=== PATIENT | male | born 1975 | race Caucasian/White ===

== ENCOUNTER → 2024-09-26 | Outpatient (CLI) | payer OTHER, SELFPAY ==
[2024-09-26 15:40] LABS: Absolute Lymphocyte Count 1.49 X10^3/uL (0.83-4.51); Absolute Neutrophil Count 4.2 X10^3/uL (2.0-7.7); Basophil# 0.05 X10^3/uL; Basophil% 0.8 % (0-1); Eosinophil# 0.14 X10^3/uL; Eosinophils% 2.2 % (0-5); Hematocrit 46.4 % (40-54); Hemoglobin 16.8 g/dL (13.0-16.5); Lymphocyte # 1.49 X10^3/ul (0.83-4.51); Lymphocyte % 23.2 % (19-41); Mean Corp Hgb Conc 36.2 g/dL (32-36); Mean Corpuscular Hgb 32.1 pg (27.0-32.0); Mean Corpuscular Volume 88.7 fL (80-94); Mean Platelet Vol. 10.3 fl (6.2-12.0); Monocyte# 0.46 X10^3/uL; Monocyte% 7.2 % (0-10); NRBC Flagged by Analyzer 0 % (0-5); Neutrophil # 4.24 X10^3/uL (2.7-7.7); Platelet Count 227 K/mm3 (150-450); RBC Distribution Width CV 12.8 % (11.6-14.6); RBC Distribution Width SD 41.2 fl (35.1-43.9); Red Blood Count 5.23 M/mm3 (4.6-6.2); White Blood Count 6.4 K/mm3 (4.4-11.0)
[2024-09-26 16:50] LABS: ALB/GLOB Ratio 1.6 RATIO (0.9-2.4); AST(SGOT) 41 U/L (<=37); Alanine Aminotransfer ALT/SGPT 54 U/L (<=46); Alkaline Phosphatase 74 U/L (40-129); Anion Gap 13 (5-15); BUN 12 mg/dL (4-19); BUN/Creat Ratio 11.2 RATIO (10-20); Calcium,Total 9.8 mg/dL (7.6-11.0); Carbon Dioxide 22.1 mmol/L (21.0-32.0); Chloride 103 mmol/L (98-108); Creatinine, Serum 1.03 mg/dL (0.70-1.20); EST Glomerular Filtration Rate 90 (>60); Globulin 3.1 g/dL (2.2-4.2); Glucose 116 mg/dL (70-99); Protein, Total 8.1 g/dL (5.9-8.4); Sodium Level 138 mmol/L (133-145); Total Bilirubin 0.47 mg/dL (0.00-1.30)
[2024-09-26 17:02] LABS: Cholesterol 159 mg/dL (<=200); High Density Lipoprotein 21 mg/dL; Low Density Lipoprotein Calc. -51 mg/dL; Triglycerides 946 mg/dL; Very Low Density Lipoprotein 189 mg/dL (5-40); cholesterol:hdl ratio screen 7.64
[2024-09-26 17:56] LABS: Vitamin B12 558 pg/mL (180-914); Vitamin D,25 Hydroxy 44.1 ng/mL (30-100)
== END | disposition home or self-care (01) ==
LOC: BIMLAB 14:08
PROVIDERS: PCP Internal Medicine; Referring Provider Internal Medicine; Visit Provider Internal Medicine
DX: I10 Essential (primary) hypertension (principal); F41.9 Anxiety disorder, unspecified; F32.A Depression, unspecified
CPT/HCPCS: 36415; 80053; 80061; 82306; 82607; 84439; 84443; 85025

== ENCOUNTER → 2025-03-01 | Outpatient (CLI) | payer OTHER, SELFPAY ==
--- OUTSIDE RECORDS SUMMARY | 2025-03-01 06:07 | XMS RPT_ITS | CCD ---
Author Organization [facility] Care Team Providers Care Fill Manager Name Role Phone KEVIN STRANGE CNP Primary Care Unavailable KEVIN STRANGE CNP Consulting Unavailable KEVIN STRANGE CNP Attending Unavailable KEVIN STRANGE CNP Admitting Unavailable PROVIDER, UNKNOWN Consulting Unavailable PROVIDER, UNKNOWN Consulting Unavailable KEVIN STRANGE CNP Primary Care Unavailable KEVIN STRANGE CNP Consulting Unavailable KEVIN STRANGE CNP Attending Unavailable KEVIN STRANGE CNP Admitting Unavailable PROVIDER, UNKNOWN Consulting Unavailable PROVIDER, UNKNOWN Consulting Unavailable KEVIN STRANGE CNP Primary Care Unavailable KEVIN STRANGE CNP Consulting Unavailable KEVIN STRANGE CNP Attending Unavailable KEVIN STRANGE CNP Admitting Unavailable PROVIDER, UNKNOWN Consulting Unavailable PROVIDER, UNKNOWN Consulting Unavailable Cynthia RODRIGUEZ, Dr. Pierce Attending Provider [phone] Cynthia RODRIGUEZ, Dr. Pierce Primary Care Provider Cynthia RODRIGUEZ, Dr. Pierce Referring Provider Oleghe, Efewongbe Primary Care Unavailable Oleghe, Efewongbe Referring Unavailable Oleghe, Efewongbe Attending Unavailable Oleghe, Efewongbe Referring Unavailable Oleghe, Efewongbe Attending Unavailable Oleghe, Efewongbe Primary Care Unavailable Oleghe, Efewongbe Referring Unavailable Oleghe, Efewongbe Attending Unavailable Oleghe, Efewongbe Primary Care Unavailable Oleghe, Efewongbe Attending Unavailable Oleghe, Efewongbe Referring Unavailable Oleghe, Efewongbe Attending Unavailable Oleghe, Efewongbe Primary Care Unavailable Allergies Allergy Classification Reported Allergen(s) Allergy Type Date of Onset Reaction(s) Facility (2 sources) Environmental Allergies: Uncoded; Translations: [Environmental Allergies: Uncoded] Propensity to adverse reactions [facility] Medications Current Medications Medication Drug Class(es) Dates Sig (Normalized) Sig (Original) amLODIPine 5 mg oral tablet (1 source) Dihydropyridine Calcium Channel Deyanira Start: 01-09-2025 take 1 tablet by mouth once daily Amlodipine 5 mg tablet Active 5 mg PO daily 30 2 January 09, 2025 12:00am Blood Pressure Monitor kit (1 source) Start: 09-26-2024 Blood Pressure Monitor kit Active 0 .MEDSUPPLY 1 0 September 26, 2024 12:00am Essential (primary) hypertension Check blood pressure daily for hypertension I10 Problems Problem Classification Problem Date Documented Da te Episodic/Chronic Anxiety disorders (3 sources) Mixed anxiety and depressive disorder; Translations: [Anxiety disorder, unspecified] Onset: 09-26-2024 09-26-2024 Chronic Disorders of lipid metabolism (2 sources) Hyperlipidemia, unspecified; Translations: [Hyperlipidemia, unspecified] Onset: 04-04-2024 Chronic Essential hypertension (4 sources) Essential (primary) hypertension; Translations: [Hypertensive disorder] Onset: 04-04-2024 09-26-2024 Chronic Mood disorders (1 source) Mood disorders; Translations: [Depression, unspecified] Onset: 09-26-2024 Other gastrointestinal disorders (2 sources) Groin mass; Translations: [Other intra-abdominal and pelvic swelling, mass and lump] 09-26-2024 Episodic Other gastrointestinal disorders (2 sources) Other intra-abdominal and pelvic swelling, mass and lump; Translations: [Other intra-abdominal and pelvic swelling, mass and lump] Onset: 09-26-2024 Episodic Other liver diseases (1 source) Elevated liver enzymes level; Translations: [Abnormal levels of other serum enzymes] 09-27-2024 Episodic Other liver diseases (1 source) Abnormal levels of other serum enzymes; Translations: [Abnormal levels of other serum enzymes] Onset: 11-21-2024 Episodic Other male genital disorders (2 sources) Swelling of scrotum ; Translations: [Other specified disorders of the male genital organs] 09-26-2024 Episodic Other male genital disorders (2 sources) Other specified disorders of the male genital organs; Translations: [Other specified disorders of the male genital organs] Onset: 09-26-2024 Episodic Other screening for suspected conditions (not mental disorders or infectious disease) (3 sources) Encounter for screening for diabetes mellitus; Translations: [Encounter for screening for diseases of the blood and blood-forming organs and certain disorders involving the immune mechanism] Onset: 04-06-2023 Episodic Results Test Name Value Interpretation Reference Range Facility Internal Medicine Office Vis harsh 01-09-2025 Internal Medicine Office Visit [facility] [address] [place] [address] [place] [address] OFFICE VISIT Date of Service: 01/09/25 MR#: [id number] Acct: [id number] Name: MICHAEL ASTORGA Rep #: [id number] : 1975 Provider: Dr. 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 Accompanied by: Self Is patient in pain?: No Allergies Environmental Allergies: Uncoded (seasonal) Adverse Reaction (Mild, Verified 01/09/25 08:03) congestion Medications ???Medication ???Instructions ???Recorded ???Confirmed ???Type blood pressure monitor #1 ea 09/26/24 01/09/25 Rx amlodipine 5 mg tablet 5 mg PO QDAY #30 tabs 01/09/25 Rx Have you fallen in the past year?: No Nurse's Note: discuss referrals etc [facility] Medical History Elevated liver enzymes Anxiety and depression Hypertension Scrotal swelling Left groin mass Social History adopted: No household members: spouse housing: house current occupational status: employed current occupational exposures/hazards: No pets and animals: Yes pets and animals: cat(s) leisure activities: reading history of recent travel: No Smoking Status: Never smoker second hand exposure: No alcohol intake: current alcohol intake frequency: holidays/special occasions only substance use type: does not use well-balanced diet: about half the time caffeine: Yes Type: coffee Number of servings: 2 eating out: 4 or more times/week during the past year weight has: increased > 10 lbs what type of physical activity do you participate in: none amanda/pentecostalism: Sabianist seatbelt use: always do you feel safe at home: Yes HPI HPI Chief Complaint: fu Details: MICHAEL ASTORGA, is a 49 M who presents to the office today for follow-up. No acute concerns at this time. History of hypertension, at his last visit recommendation was for home monitoring and updating office however he states that he only recently purchased a monitor and has not been checking it at home. Initial blood pressure today at 138/98 and repeat was 160/100. Significant family history of hypertension. Also history of anxiety and depression, he states that over recent weeks he has felt a lot better. Currently not on any medication. Chronic groin swelling, an attempt was made at imaging however this was denied by his insurance. Was referred initially to general surgery however they required imaging prior to scheduling a visit with him. He was subsequently referred to urology and is yet to schedule this appointment. Swelling remains the same. No change in bowel or bladder habit. ROS Const Constitutional: No body ache, excessive sweating, fatigue, fever(s), frequent falls, headache(s), snoring, weakness, weight change, sleep problems or change in appetite Eyes Eyes: No blurry vision, change in vision, vision loss, dry eyes, eye pain or Light sensitivity ENT ENT: No abnormal hearing, ear or mastoid pain, tinnitus, nasal congestion, headache(s), neck pain or sore throat Resp Respiratory: No cough, excessive phlegm production, hemoptysis, shortness of breath, snoring or wheezing Cardio Cardiology: No chest pain at rest, chest pain with exertion, excessive sweating, shortness of breath, dyspnea on exertion, lightheadedness, orthopnea or palpitations Gastro GI: No abdominal pain, change in bowel habits, constipation, cramping, diarrhea, nausea/dyspepsia or vomiting Genitourinary Male: No burning urination, painful urination, urinary incontinence, urinary frequency or blood in urine Musc Musculoskeletal: No abnormal gait, joint pain, back pain, limited range of motion, neck pain, numbness, stiffness, tingling or Arthritis Skin Skin: No dry skin, redness, lesions, itchy eyes, rash or wounds Neuro Neurology: No abnormal gait, abnormal hearing, abnormal speech, dizziness, weakness, frequent falls, headache(s), memory loss, numbness or tingling Psych Psychiatric: No anxiety, No change in appetite, No depression, No memory loss and No Thoughts of harming yourself/Others Endo Endocrine: No cold intolerance, excessive sweating, fatigue, flushing, heat intolerance, increased thirst/drinking, increased hunger or weight change Aller/Imm Allergy/Immunologic : No itchy eyes, seasonal allergy symptoms, hives or wheezing Anival/Lymp (more content not included)... Normal [facility] Absolute lymphocyte countOrd ered By: Kari Marie on 09-26-2024 Lymphocytes Auto (Unsp spec) [#/Vol] 1.49 10*3/uL 0.83-4.51 [facility] Absolute neutrophil countOrd ered By: Kari Marie on 09-26-2024 Neutrophils (Bld) [#/Vol] 4.2 10*3/uL 2.0-7.7 [facility] Anion gap in Serum or Plasma Ordered By: Kari Marie on 09-26-2024 Anion gap [Moles/Vol] 13 mmol/L 5-15 [facility] Automated lymphocyte count a s percentage of total leukocytesOrdered By: Kari Marie on 09-26-2024 Lymphocytes/100 WBC Auto (Unsp spec) 23.2 % 19-41 [facility] BUN/creatinine ratioOrdered By: Kari Marie on 09-26-2024 Urea nitrogen/Creatinine [Mass ratio] 11.2 mg/mg 10-20 [facility] Basophil percentageOrdered B y: Kari Marie on 09-26-2024 Basophils/100 WBC (Bld) 0.8 % 0-1 [facility] Bilirubin, totalOrdered By: Kari Marie on 09-26-2024 Bilirubin [Mass/Vol] 0.47 mg/dL 0.00-1.30 [facility] CBC W/Diff, Automatedon 04-3 0-202 Absolute Lymph 1.49 X10 3/uL Normal 0.83-4.51 [facility] Comment on above: Performed By: #### L 500.4100, L501.9520, L503.0106, L500.4050, L506.0400, L506.1001, L100.0100 #### [facility] [address] [place], [address] Absolute Neut 4.2 X10 3/uL Normal 2.0-7.7 [facility] Comment on above: Performed By: #### L 500.4100, L501.9520, L503.0106, L500.4050, L506.0400, L506.1001, L100.0100 #### [facility] [address] [place], [address] Basophils/100 WBC (Bld) 0.8 % Normal 0-1 [facility] Comment on above: Performed By: #### L 500.4100, L501.9520, L503.0106, L500.4050, L506.0400, L506.1001, L100.0100 #### [facility] [address] [place], [address] Eosinophils/100 WBC (Bld) 2.2 % Normal 0-5 [facility] Comment on above: Performed By: #### L 500.4100, L501.9520, L503.0106, L500.4050, L506.0400, L506.1001, L100.0100 #### [facility] [address] [place], [address] Erythrocyte distribution width (RBC) [Ratio] 12.8 % Normal 11.6-14.6 [facility] Comment on above: Performed By: #### L 500.4100, L501.9520, L503.0106, L500.4050, L506.0400, L506.1001, L100.0100 #### [facility] [address] [place], [address] Hematocrit (Bld) [Volume fraction] 46.4 % Normal 40-54 [facility] Comment on above: Performed By: #### L 500.4100, L501.9520, L503.0106, L500.4050, L506.0400, L506.1001, L100.0100 #### [facility] [address] [place], [address] Hemoglobin (Bld) [Mass/Vol] 16.8 g/dL High 13.0-16.5 [facility] Comment on above: Performed By: #### L 500.4100, L501.9520, L503.0106, L500.4050, L506.0400, L506.1001, L100.0100 #### [facility] [address] [place], [address] IG% 0.600 Normal 0.0-0.9 [facility] Comment on above: Result Comment: IG% - Immature Granulocytes (promyelocytes, myelocytes and metamyelocytes) > 1% indicates that a LEFT SHIFT is Present. Performed By: #### L 500.4100, L501.9520, L503.0106, L500.4050, L506.0400, L506.1001, L100.0100 #### [facility] [address] [place], [address] Lymphocytes/100 WBC (Bld) 23.2 % Normal 19-41 [facility] Comment on above: Performed By: #### L 500.4100, L501.9520, L503.0106, L500.4050, L506.0400, L506.1001, L100.0100 #### [facility] [address] [place], [address] MCH (RBC) [Entitic mass] 32.1 pg High 27.0-32.0 [facility] Comment on above: Performed By: #### L 500.4100, L501.9520, L503.0106, L500.4050, L506.0400, L506.1001, L100.0100 #### [facility] [address] [place], [address] MCHC (RBC) [Mass/Vol] 36.2 g/dL High 32-36 [facility] Comment on above: Performed By: #### L 500.4100, L501.9520, L503.0106, L500.4050, L506.0400, L506.1001, L100.0100 #### [facility] [address] [place], [address] MCV (RBC) [Entitic vol] 88.7 fL Normal 80-94 [facility] Comment on above: Performed By: #### L 500.4100, L501.9520, L503.0106, L500.4050, L506.0400, L506.1001, L100.0100 #### [facility] [address] [place], [address] Monocytes/100 WBC (Bld) 7.2 % Normal 0-10 [facility] Comment on above: Performed By: #### L 500.4100, L501.9520, L503.0106, L500.4050, L506.0400, L506.1001, L100.0100 #### [facility] [address] [place], [address] Neutrophils/100 WBC (Bld) 66.0 % Normal 47-70 [facility] Comment on above: Performed By: #### L 500.4100, L501.9520, L503.0106, L500.4050, L506.0400, L506.1001, L100.0100 #### [facility] [address] [place], [address] Nucleated RBC (Bld) [#/Vol] 0 10*3/uL Normal 0-5 [facility] Comment on above: Performed By: #### L 500.4100, L501.9520, L503.0106, L500.4050, L506.0400, L506.1001, L100.0100 #### [facility] [address] [place], [address] Platelet mean volume (Bld) [Entitic vol] 10.3 fL Normal 6.2-12.0 [facility] Comment on above: Performed By: #### L 500.4100, L501.9520, L503.0106, L500.4050, L506.0400, L506.1001, L100.0100 #### [facility] [address] [place], [address] Platelets (Bld) [#/Vol] 227 10*3/uL Normal 150-450 [facility] Comment on above: Performed By: #### L 500.4100, L501.9520, L503.0106, L500.4050, L506.0400, L506.1001, L100.0100 #### [facility] [address] [place], [address] RBC (Bld) [#/Vol] 5.23 10*6/uL Normal 4.6-6.2 [facility] Comment on above: Performed By: #### L 500.4100, L501.9520, L503.0106, L500.4050, L506.0400, L506.1001, L100.0100 #### [facility] [address] [place], [address] RDW SD 41.2 fl Normal 35.1-43.9 [facility] Comment on above: Performed By: #### L 500.4100, L501.9520, L503.0106, L500.4050, L506.0400, L506.1001, L100.0100 #### [facility] [address] [place], [place], [address] WBC (Bld) [#/Vol] 6.4 10*3/uL Normal 4.4-11.0 [facility] Comment on above: Performed By: #### L 500.4100, L501.9520, L503.0106, L500.4050, L506.0400, L506.1001, L100.0100 #### [facility] [address] [place], [address] Calculated very low density lipoprotein (VLDL) cholesterol measurementOrdered By: Kari Marie on 09-26-2024 Calculated very low density lipoprotein (VLDL) cholesterol measurement 189 mg/dL High 5-40 [facility] Carbon dioxide, total [Moles /volume] in Central venous bloodOrdered By: Kari Marie on 09-26-2024 CO2 [Moles/Vol] 22.1 mmol/L 21.0-32.0 [facility] Chloride assayOrdered By: Marlon Marie on 09-26-2024 Chloride [Moles/Vol] 103 mmol/L 98-108 [facility] Comprehensive Metabolic Prof ilon 09-26-2024 Albumin [Mass/Vol] 5.0 g/dL Normal 3.5-5.0 [facility] Comment on above: Performed By: #### L 500.4100, L501.9520, L503.0106, L500.4050, L506.0400, L506.1001, L100.0100 #### [facility] [address] [place], [address] Albumin/Globulin [Mass ratio] 1.6 {ratio} Normal 0.9-2.4 [facility] Comment on above: Performed By: #### L 500.4100, L501.9520, L503.0106, L500.4050, L506.0400, L506.1001, L100.0100 #### [facility] [address] [place], [address] ALK PHOS 74 U/L Normal 40-129 [facility] Comment on above: Performed By: #### L 500.4100, L501.9520, L503.0106, L500.4050, L506.0400, L506.1001, L100.0100 #### [facility] [address] [place], [address] ALT [Catalytic activity/Vol] 54 U/L High <=46 [facility] Comment on above: Performed By: #### L 500.4100, L501.9520, L503.0106, L500.4050, L506.0400, L506.1001, L100.0100 #### [facility] [address] [place], [address] AST [Catalytic activity/Vol] 41 U/L High <=37 [facility] Comment on above: Performed By: #### L 500.4100, L501.9520, L503.0106, L500.4050, L506.0400, L506.1001, L100.0100 #### [facility] [address] [place], [address] Bilirubin [Mass/Vol] 0.47 mg/dL Normal 0.00-1.30 [facility] Comment on above: Performed By: #### L 500.4100, L501.9520, L503.0106, L500.4050, L506.0400, L506.1001, L100.0100 #### [facility] [address] [place], [address] BUN/CRE 11.2 RATIO Normal 10-20 [facility] Comment on above: Performed By: #### L 500.4100, L501.9520, L503.0106, L500.4050, L506.0400, L506.1001, L100.0100 #### [facility] [address] [place], [address] Calcium [Mass/Vol] 9.8 mg/dL Normal 7.6-11.0 [facility] Comment on above: Performed By: #### L 500.4100, L501.9520, L503.0106, L500.4050, L506.0400, L506.1001, L100.0100 #### [facility] [address] [place], [address] Chloride [Moles/Vol] 103 mmol/L Normal 98-108 [facility] Comment on above: Performed By: #### L 500.4100, L501.9520, L503.0106, L500.4050, L506.0400, L506.1001, L100.0100 #### [facility] [address] [place], [address] CO2 [Moles/Vol] 22.1 mmol/L Normal 21.0-32.0 [facility] Comment on above: Performed By: #### L 500.4100, L501.9520, L503.0106, L500.4050, L506.0400, L506.1001, L100.0100 #### [facility] [address] [place], [address] Creatinine [Mass/Vol] 1.03 mg/dL Normal 0.70-1.20 [facility] Comment on above: Performed By: #### L 500.4100, L501.9520, L503.0106, L500.4050, L506.0400, L506.1001, L100.0100 #### [facility] [address] [place], [address] GAP 13 Normal 5-15 [facility] Comment on above: Performed By: #### L 500.4100, L501.9520, L503.0106, L500.4050, L506.0400, L506.1001, L100.0100 #### [facility] [address] [place], [address] GFR/1.73 sq M.predicted among non-blacks MDRD (S/P/Bld) [Vol rate/Area] 90 mL/min/{1.73_m2} Normal >60 [facility] Comment on above: Result Comment: mL/m in/1.73m2 CKD-EPI Creatinine Equation (2020) Performed By: #### L 500.4100, L501.9520, L503.0106, L500.4050, L506.0400, L506.1001, L100.0100 #### [facility] [address] [place], [address] Globulin (S) [Mass/Vol] 3.1 g/dL Normal 2.2-4.2 [facility] Comment on above: Performed By: #### L 500.4100, L501.9520, L503.0106, L500.4050, L506.0400, L506.1001, L100.0100 #### [facility] [address] [place], [address] Glucose [Mass/Vol] 116 mg/dL High 70-99 [facility] Comment on above: Performed By: #### L 500.4100, L501.9520, L503.0106, L500.4050, L506.0400, L506.1001, L100.0100 #### [facility] [address] [place], [address] Potassium [Moles/Vol] 4.0 mmol/L Normal 3.3-5.1 [facility] Comment on above: Performed By: #### L 500.4100, L501.9520, L503.0106, L500.4050, L506.0400, L506.1001, L100.0100 #### [facility] [address] [place], [address] Sodium [Moles/Vol] 138 mmol/L Normal 133-145 [facility] Comment on above: Performed By: #### L 500.4100, L501.9520, L503.0106, L500.4050, L506.0400, L506.1001, L100.0100 #### [facility] [address] [place], [address] T PROT 8.1 g/dL Normal 5.9-8.4 [facility] Comment on above: Performed By: #### L 500.4100, L501.9520, L503.0106, L500.4050, L506.0400, L506.1001, L100.0100 #### [facility] [address] [place], [address] Urea nitrogen [Mass/Vol] 12 mg/dL Normal 4-19 [facility] Comment on above: Performed By: #### L 500.4100, L501.9520, L503.0106, L500.4050, L506.0400, L506.1001, L100.0100 #### [facility] [address] [place], [address] Eosinophil percentageOrdered By: Kari Marie on 09-26-2024 Eosinophils/100 WBC (Bld) 2.2 % 0-5 [facility] Erythrocyte distribution wid th ratioOrdered By: Kari Marie on 09-26-2024 Erythrocyte distribution width (RBC) [Ratio] 12.8 % 11.6-14.6 [facility] Erythrocyte distribution wid th standard deviationOrdered By: Kari Marie on 09-26-2024 Erythrocyte distribution width (RBC) [Ratio] 41.2 fl 35.1-43.9 [facility] Glomerular filtration rate ( GFR) estimation/1.73 sq m using serum, plasma, or whole bOrdered By: Kari Marie on 09-26-2024 GFR/1.73 sq M.predicted among non-blacks MDRD (S/P/Bld) [Vol rate/Area] 90 mL/min/{1.73_m2} >60 [facility] Comment on above: mL/min/1.73m2 CKD-EP I Creatinine Equation (2020) Hematocrit Auto (Bld) [Volum e fraction]Ordered By: Kari Marie on 09-26-2024 Hematocrit (Bld) [Volume fraction] 46.4 % 40-54 [facility] Hemoglobin measurementOrdere d By: Kari Marie on 09-26-2024 Hemoglobin (Bld) [Mass/Vol] 16.8 g/dL High 13.0-16.5 [facility] Immature granulocytes/100 WB C Auto (Bld)Ordered By: Kari Marie on 09-26-2024 Immature granulocytes/100 WBC (Bld) 0.600 % 0.0-0.9 [facility] Comment on above: IG% - Immature Granu locytes (promyelocytes, myelocytes and metamyelocytes) > 1% indicates that a LEFT SHIFT is Present. Internal Medicine Office Vis harsh 09-26-2024 Internal Medicine Office Visit [facility] [place] [address] [place] [address] OFFICE VISIT Date of Service: 09/26/24 MR#: [id number] Acct: [id number] Name: MICHAEL ASTORGA Rep #: [id number] : 1975 Provider: Dr. Kari yan MD Age/Sex: 49/M Location: [facility] Status: Signed Intake Vital Signs 09/26/24 13:29 Height 6 ft 4 in Weight: 232 lb 2 oz BMI 28.2 BP 146/82 H Blood Pressure Location Lt brachial Position Sitting Respiration 16 Pulse 109 H Pulse Source Monitor Temp 97.1 F L Temp Source Temporal Pulse Oximetry (%) 95 Oxygen Delivery Method room air Intake Visit Reasons: Booked from other vendor Chief Complaint: establishing Instructor Modeling Required: No Accompanied by: Self Is patient in pain?: No Allergies Environmental Allergies: Uncoded (seasonal) Adverse Reaction (Mild, Verified 09/26/24 13:23) congestion Medications ???Medication ???Instructions ???Recorded ???Confirmed ???Type blood pressure monitor #1 ea 09/26/24 09/26/24 Rx Have you fallen in the past year?: No [facility] Medical History (Updated 09/26/24 @ 14:[address] Kari Marie MD) Anxiety and depression Hypertension Scrotal swelling Left groin mass Social History (Updated 09/26/24 @ 13:29 by Roxie Dumont) adopted: No household members: spouse housing: house service: No current occupational status: employed current occupational exposures/hazards: No pets and animals: Yes pets and animals: cat(s) leisure activities: reading history of recent travel: No do you think of yourself as: straight/heterosexu al current gender identity: male Smoking Status: Never smoker second hand exposure: No alcohol intake: current alcohol intake frequency: holidays/special occasions only substance use type: does not use well-balanced diet: about half the time caffeine: Yes Type: coffee Number of servings: 2 eating out: 4 or more times/week during the past year weight has: increased > 10 lbs what type of physical activity do you participate in: none amanda/pentecostalism: Sabianist seatbelt use: always do you feel safe at home: Yes Questionnaire H-9 BMS Over the last 2 weeks, how often have you been bothered by any of the following problems? 1. Little interest or pleasure in doing things: several days 2. Feeling down, depressed, or hopeless: several days 3. Trouble falling or staying asleep, or sleeping too much: several days 4. Feeling tired or having little energy: several days 5. Poor appetite or overeating: several days 6. Feeling bad about yourself - or that you are a failure or have let yourself and your family down: several days 7. Trouble concentrating on things, such as reading the newspaper or watching television: several days 8. Moving or speaking so slowly that other people could have noticed? - Or the opposite - being so fidgety or restless that you have been moving around a lot more than usual: several days 9. Thoughts that you would be better off or of hurting yourself in some way: not at all Total score: 8 If you checked off any problems, how difficult have these problems made it for you to do your work, take care of things at home, or get along with other people?: somewhat difficult Source: Developed by Drs. Carlos Marshall, Janneth Palomares, Tavo Escoto and colleagues, with an educational suki from [facility]. OLVIN-7 BMS OLVIN-7 Feeling nervous, anxious, or on edge: 1 = Several days Not being able to stop or control worryin = Several days Worrying too much about different things: 2 = More than half the days Trouble relaxin = More than half the days Being so restless that it is hard to sit still: 0 = Not at all Becoming easily annoyed or irritable: 1 = Several days Feeling afraid as if something awful might happen: 2 = More than half the days Total OLVIN-7 score (0-4 normal; 5-9 mild; 10-14 moderate; 15-21 severe): 9 Source: Developed by Drs. Carlos Marshall, Janneth Palomares, Tavo Escoto and colleagues, with an educational suki from [facility]. HPI HPI Chief Complaint: establishing Details: Michael Astorga, is a 49 M who presents to the office today to establish care. Also has some concerns. He states that he has had anxiety and depression for many years. Had seen a therapist years ago but not lately. He believed that he was doing okay until late last year when he had what he describes as a significant bout. For the most part, he states that he is now back to his baseline. Scored 8 and 9 on the PHQ and OLVIN-7 respectively. He also reports left-sided groin swelling which extends down to his scrotal area. Has been present since at least 1999. Progressively worsening. Worse with straining/pressure. No concerns with bowel movements or urination. Has not had this evaluated. Blood press (more content not included)... Normal [facility] LDL calc ser/plasOrdered By: Kari Marie on 09-26-2024 Cholesterol in LDL [Mass/Vol] -51 mg/dL [facility] Comment on above: Vrdivdgqmu=865-394 m g/dL & Higher Wvpv=509 mg/dL or greater Laboratory - Chemistry and C hemistry - challengeOrdered By: Kari Fernandezrocio on 09-26-2024 AST [Catalytic activity/Vol] 41 U/L High <38 [facility] Lipid Profileon 09-26-2024 CHOL:HDL 7.64 Normal [facility] Comment on above: Performed By: #### L 500.4100, L501.9520, L503.0106, L500.4050, L506.0400, L506.1001, L100.0100 #### [facility] [address] [place], [address] Cholesterol [Mass/Vol] 159 mg/dL Normal <=200 [facility] Comment on above: Result Comment: Chol esterol level, Desirable <200 mg/dL Borderline high cholesterol 200-239 mg/dL High cholesterol >=240 mg/dL Recommendations of the NCEP Adult Treatment Panel for the following risk-cutoff thresholds for the [place] population. Performed By: #### L 500.4100, L501.9520, L503.0106, L500.4050, L506.0400, L506.1001, L100.0100 #### [facility] [address] [place], [address] Cholesterol in HDL [Mass/Vol] 21 mg/dL Low [facility] Comment on above: Result Comment: [place] onal Cholesterol Education Program (NCEP) guidelines: <40 mg/dL: Low HDL-cholesterol (major risk factor for CHD) >= 60 mg/dL: High HDL-cholesterol (negative risk factor for CHD) HDL-cholesterol is affected by a number of factors, e.g. smoking, exercise, hormones, sex and age. Performed By: #### L 500.4100, L501.9520, L503.0106, L500.4050, L506.0400, L506.1001, L100.0100 #### [facility] [address] [place], [address] Cholesterol in LDL [Mass/Vol] -51 mg/dL Normal [facility] Comment on above: Result Comment: Bord scgtet=944-787 mg/dL Higher Ycpg=852 mg/dL or greater Performed By: #### L 500.4100, L501.9520, L503.0106, L500.4050, L506.0400, L506.1001, L100.0100 #### [facility] [address] [place], [address] Cholesterol in VLDL [Mass/Vol] 189 mg/dL High 5-40 [facility] Comment on above: Performed By: #### L 500.4100, L501.9520, L503.0106, L500.4050, L506.0400, L506.1001, L100.0100 #### [facility] [address] [place], [address] Triglyceride [Mass/Vol] 946 mg/dL High [facility] Comment on above: Result Comment: The drugs N-Acetylcysteine and Metamizole may falsely depress this assay. Normal range: <150 mg/dL Borderline High: 150-199 mg/dL High: 200-499 mg/dL Very High: >500 mg/dL Performed By: #### L 500.4100, L501.9520, L503.0106, L500.4050, L506.0400, L506.1001, L100.0100 #### [facility] [address] [place], [address] MCV (mean corpuscular volume ) determinationOrdered By: Kari Marie on 09-26-2024 MCV (RBC) [Entitic vol] 88.7 fL 80-94 [facility] Mean corpuscular hemoglobin (MCH) determinationOrdered By: Kari Marie on 09-26-2024 MCH (RBC) [Entitic mass] 32.1 pg High 27.0-32.0 [facility] Mean corpuscular hemoglobin concentration (MCHC) determinationOrdered By: Kari Marie on 09-26-2024 MCHC (RBC) [Mass/Vol] 36.2 g/dL High 32-36 [facility] Mean platelet volume determi nationOrdered By: Kari Marie on 09-26-2024 Platelet mean volume (Bld) [Entitic vol] 10.3 fL 6.2-12.0 [facility] Monocyte percentageOrdered B y: Kari Jimrmanitha on 09-26-2024 Monocytes/100 WBC (Bld) 7.2 % 0-10 [facility] Neutrophil percentageOrdered By: Kari Jimrmanitha on 09-26-2024 Neutrophils/100 WBC (Bld) 66.0 % 47-70 [facility] Nucleated red blood cell per centageOrdered By: Kari Jimrocio on 09-26-2024 Nucleated RBC/100 WBC (Bld) [Ratio] 0 % 0-5 [facility] Platelet countOrdered By: Mralon earl Jimrmanitha on 09-26-2024 Platelets (Bld) [#/Vol] 227 10*3/uL 150-450 [facility] Potassium measurement (mass/ volume)Ordered By: Marlonalexulysseskristen Fernandezrmanitha on 09-26-2024 Potassium (Unsp spec) [Mass/Vol] 4.0 mmol/L 3.3-5.1 [facility] RBC Auto (Bld) [#/Vol]Ordere d By: Marlonalexmal Jimrmanitha on 09-26-2024 RBC (Bld) [#/Vol] 5.23 10*6/uL 4.6-6.2 [facility] Screening total cholesterol/ high density lipoprotein (HDL) cholesterol ratioOrdered By: Marlonalexulysseskristen Fernandezrmanitha on 09-26-2024 Cholesterol.total/Cholest jovan in HDL [Mass ratio] 7.64 {ratio} [facility] Serum creatinine measurement (mass/volume)Ordered By: Marlonearl Fernandezrmanitha on 09-26-2024 Creatinine [Mass/Vol] 1.03 mg/dL 0.70-1.20 [facility] Serum globulin measurementOr dered By: Kari Fernandezrmanitha on 09-26-2024 Globulin (S) [Mass/Vol] 3.1 g/dL 2.2-4.2 [facility] Serum glucose measurement (m ass/volume)Ordered By: Kari Marie on 09-26-2024 Glucose [Mass/Vol] 116 mg/dL High 70-99 [facility] Serum or plasma alanine fitzpatrick otransferase (ALT) measurementOrdered By: Kari Marie on 09-26-2024 ALT [Catalytic activity/Vol] 54 U/L High <47 [facility] Serum or plasma albumin manuel urement (mass/volume)Ordered By: Kari Marie on 09-26-2024 Albumin [Mass/Vol] 5.0 g/dL 3.5-5.0 [facility] Serum or plasma albumin/glob ulin mass ratioOrdered By: [facility] centerkristen Marie on 09-26-2024 Albumin/Globulin [Mass ratio] 1.6 {ratio} 0.9-2.4 [facility] Serum or plasma alkaline thania sphatase measurementOrdered By: Kari Marie 09-26-2024 ALP [Catalytic activity/Vol] 74 U/L 40-129 [facility] Serum or plasma calcium manule urement (mass/volume)Ordered By: Kari Marie 09-26-2024 Calcium [Mass/Vol] 9.8 mg/dL 7.6-11.0 [facility] Serum or plasma cholesterol in HDL measurement (mass/volume)Ordered By: Kari Marie on 09-26-2024 Cholesterol in HDL [Mass/Vol] 21 mg/dL Low >40 [facility] Comment on above: National Cholesterol Education Program (NCEP) guidelines:<40 mg/dL: Low HDL-cholesterol (major risk factor for CHD)>= 60 mg/dL: High HDL-cholesterol (negative risk factor for CHD)HDL-cholesterol is affected by a number of factors, e.g. smoking, exercise, hormones, sex and age. Serum or plasma cholesterol measurement (mass/volume)Ordered By: Kari Marie on 09-26-2024 Cholesterol [Mass/Vol] 159 mg/dL <201 [facility] Comment on above: Cholesterol level, D esirable <200 mg/dLBorderline high cholesterol 200-239 mg/dLHigh cholesterol >=240 mg/dLRecommendations of the NCEP Adult Treatment Panel for the following risk-cutoff thresholds for the [place] population. Serum or plasma urea nitroge n measurement (mass/volume)Ordered By: Kari Marie on 09-26-2024 Urea nitrogen [Mass/Vol] 12 mg/dL 4-19 [facility] Sodium levelOrdered By: Marlonalex avendañoedwar Cynthia on 09-26-2024 Sodium [Moles/Vol] 138 mmol/L 133-145 [facility] T4 Free Directon 09-26-2024 T4 FREE DIRECT 0.90 ng/dL Normal 0.76-1.46 [facility] Comment on above: Performed By: #### L 500.4100, L501.9520, L503.0106, L500.4050, L506.0400, L506.1001, L100.0100 #### [facility] [address] [place], [address] T4 freeOrdered By: Kari Marie on 09-26-2024 Free T4 [Mass/Vol] 0.90 ng/dL 0.76-1.46 [facility] TSH DL <= 0.005 mIU/L QnOrde red By: Kari Marie on 09-26-2024 TSH Qn 1.480 uIU/mL 0.300-4.200 [facility] Thyroid Stim Hormone (TSH)on 09-26-2024 TSH 1.480 uIU/mL Normal 0.300-4.200 [facility] Comment on above: Performed By: #### L 500.4100, L501.9520, L503.0106, L500.4050, L506.0400, L506.1001, L100.0100 #### [facility] [address] [place], [place], [id number] Total proteinOrdered By: Theo izzykristen Marie on 09-26-2024 Protein [Mass/Vol] 8.1 g/dL 5.9-8.4 [facility] Triglycerides measurementOrd ered By: Kari Marie on 09-26-2024 Triglyceride [Mass/Vol] 946 mg/dL High <199 [facility] Comment on above: The drugs N-Acetylcy steine and Metamizole may falsely depress this assay. Normal range: <150 mg/dLBorderline High: 150-199 mg/dLHigh: 200-499 mg/dLVery High: >500 mg/dL Vitamin B12on 09-26-2024 Cobalamin (Vitamin B12) [Mass/Vol] 558 pg/mL Normal 180-914 [facility] Comment on above: Performed By: #### L 500.4100, L501.9520, L503.0106, L500.4050, L506.0400, L506.1001, L100.0100 #### [facility] [address] [place], [place], [id number] Vitamin B12 ser/plasOrdered By: Kari Marie on 09-26-2024 Cobalamin (Vitamin B12) [Mass/Vol] 558 pg/mL 180-914 [facility] Vitamin D,25 Hydroxyon 09-26 Vitamin D 25-OH 44.1 ng/mL Normal 30-100 [facility] Comment on above: Result Comment: Edith min D Status Deficiency: <20 ng/mL (50nmol/L) Insufficiency: 20-30 ng/mL (50-75 nmol/L) Sufficiency: 30-100 ng/mL (75-250 nmol/L) Toxicity: >100 ng/mL (>250 nmol/L) Performed By: #### L 500.4100, L501.9520, L503.0106, L500.4050, L506.0400, L506.1001, L100.0100 #### [facility] [address] [place], [place], [id number] White blood cell (WBC) count Ordered By: Kari Marie on 09-26-2024 WBC (Bld) [#/Vol] 6.4 10*3/uL 4.4-11.0 [facility] CBC + DIFFon 04-04-2024 Baso # 0.02 x10EE3/UL Normal 0.00 - 0.10 [facility] Comment on above: Performed By: #### 2 52399 #### [facility],[address] [place] [address] Basophils/100 WBC (Bld) 0.3 % Normal 0.0 - 2.0 [facility] Comment on above: Performed By: #### 2 05774 #### [facility],[address] [place] [address] CBC + DIFF Normal [facility] Comment on above: Result Comment: CBC- COMPLETE BLOOD COUNT Performed By: #### 2 92700 #### [facility],[address] [place] [address] EO # 0.17 x10EE3/UL Normal 0.00 - 0.50 [facility] Comment on above: Performed By: #### 2 88725 #### [facility],[address] [place], [place] [address] Eosinophils/100 WBC (Bld) 2.6 % Normal 0.0 - 7.0 [facility] Comment on above: Performed By: #### 2 26059 #### [facility],[address] [place] [address] Erythrocyte distribution width (RBC) [Ratio] 13.2 % Normal 12.0 - 15.6 [facility] Comment on above: Performed By: #### 2 76497 #### [facility],[address] [place] [address] Hematocrit (Bld) [Volume fraction] 48.7 % Normal 40.0 - 52.0 [facility] Comment on above: Performed By: #### 2 47017 #### [facility],[address] [place] [address]389 Hemoglobin (Bld) [Mass/Vol] 16.7 g/dL Normal 13.0 - 17.5 [facility] Comment on above: Performed By: #### 2 05261 #### [facility],[address] [place] [address] 65999 Lymph # 1.76 x10EE3/UL Normal 0.80 - 2.80 [facility] Comment on above: Performed By: #### 2 42863 #### [facility],[address] [place] [address] Lymphocytes/100 WBC (Bld) 27.5 % Normal 20.0 - 45. 0 [facility] Comment on above: Performed By: #### 2 03276 #### [facility],[address] [place] [address] 20944 MANUAL DIFF N/A Normal [facility] Comment on above: Performed By: #### 2 14530 #### [facility],[address] [place], [place] [id number] MCH (RBC) [Entitic mass] 31 pg Normal 27 - 33 [facility] Comment on above: Performed By: #### 2 66289 #### [facility],[address] [place] [address]459 MCHC 34 X10 3 Normal 32 - 36 [facility] Comment on above: Performed By: #### 2 25527 #### [facility],[address] [place] [address] 08839 MCV (RBC) [Entitic vol] 91 fL Normal 81 - 98 [facility] Comment on above: Performed By: #### 2 08605 #### [facility],[address] [place] [address] 70682 Milam # 0.46 x10EE3/UL Normal 0.20 - 1.00 [facility] Comment on above: Performed By: #### 2 13053 #### [facility],[address] [place] [address] 85169 MONOS % 7.1 % Normal 0.0 - 10.0 [facility] Comment on above: Performed By: #### 2 01573 #### [facility],[address] [place] [address] 86071 Morphology Devan (Bld) [Interp] N/A Normal [facility] Comment on above: Performed By: #### 2 13145 #### [facility],[address] [place] [address] 13670 Neut # 4.01 x10EE3/UL Normal 1.50 - 7.10 [facility] Comment on above: Performed By: #### 2 40226 #### [facility],[address] [place] [address] 19519 Neutrophils/100 WBC (Bld) 62.5 % Normal 46.0 - 76. 0 [facility] Comment on above: Performed By: #### 2 28466 #### [facility],[address] [place] [address] 35932 PLATELET 225 x10EE3/UL Normal 150 - 450 [facility] Comment on above: Performed By: #### 2 49845 #### [facility],[address] [place] [address] 22210 Platelet mean volume (Bld) [Entitic vol] 8.0 fL Normal 6.4 - 10.5 [facility] Comment on above: Result Comment: AUTO MATED DIFFERENTIAL Performed By: #### 2 66187 #### [facility],[address] [place] [address] 15531 RBC 5.35 x 10EE6/UL Normal 4.50 - 6.00 [facility] Comment on above: Performed By: #### 2 60101 #### [facility],[address] [place] [address] 83909 WBC 6.4 x 10EE3/UL Normal 4.5 - 10.8 [facility] Comment on above: Performed By: #### 2 00653 #### [facility],[address] [place] [address] 47088 CMP with eGFRon 04-04-2024 AGE 49 years Normal [facility] Comment on above: Performed By: #### 2 17670 #### [facility],[address] [place] [address] 45353 Albumin [Mass/Vol] 4.7 g/dL Normal 3.4 - 5.0 [facility] Comment on above: Performed By: #### 2 58931 #### [facility],[address] [place] [address] 21310 Albumin/Globulin [Mass ratio] 1.3 {ratio} Normal 0.9 - 1.6 [facility] Comment on above: Performed By: #### 2 14844 #### [facility],[address] [place] [address] 47988 ALK PHOS 71 U/L Normal 46 - 116 [facility] Comment on above: Performed By: #### 2 63973 #### [facility],[address] [place] [address] 86544 ALT [Catalytic activity/Vol] 57 U/L Normal 16 - 63 [facility] Comment on above: Performed By: #### 2 67657 #### [facility],[address] [place] [address] 10868 Anion gap [Moles/Vol] 16 mmol/L Normal 10 - 20 [facility] Comment on above: Performed By: #### 2 24759 #### [facility],[address] [place] [address] 05521 AST [Catalytic activity/Vol] 37 U/L Normal 15 - 37 [facility] Comment on above: Performed By: #### 2 42952 #### [facility],[address] [place] [address] 92340 B/C RATIO 8 ratio Normal 0 - 30 [facility] Comment on above: Performed By: #### 2 82205 #### [facility],[address] [place] [address] 40639 Bilirubin [Mass/Vol] 0.9 mg/dL Normal 0.2 - 1.0 [facility] Comment on above: Performed By: #### 2 74788 #### [facility],[address] [place] [address] 59070 Calcium [Mass/Vol] 9.3 mg/dL Normal 8.5 - 10.1 [facility] Comment on above: Performed By: #### 2 91995 #### [facility],[address] [place] [address] 64757 Chloride [Moles/Vol] 104 mmol/L Normal 98 - 107 [facility] Comment on above: Performed By: #### 2 51808 #### [facility],[address] [place] [address] 72261 CMP with eGFR Normal [facility] Comment on above: Result Comment: COMP REHENSIVE METABOLIC PANEL Performed By: #### 2 56077 #### [facility],[address] [place] [address] 92090 CO2 [Moles/Vol] 25.5 mmol/L Normal 21.0 - 32.0 [facility] Comment on above: Performed By: #### 2 52098 #### [facility],[address] [place] [address] 79498 Creatinine [Mass/Vol] 1.15 mg/dL Normal 0.70 - 1.30 [facility] Comment on above: Performed By: #### 2 01677 #### [facility],[address] [place] [address] 19466 GFR/1.73 sq M.predicted among non-blacks MDRD (S/P/Bld) [Vol rate/Area] mL/min/{1.73_m2} Normal 60 - 999 [facility] Comment on above: Performed By: #### 2 05947 #### [facility],[address] [place] [address] 00190 Result Comment: ACCO RDING TO THE NATIONAL KIDNEY DISEASE EDUCATION PROGRAM(NKDE), A NORMAL eGFR IS A VALUE GREATER THAN OR EQUAL TO 60 ML/MIN/1.73 SQ METERS. CHRONIC KIDNEY DISEASE: <60mL/MIN/1.73 SQ METERS KIDNEY FAILURE: <15mL/MIN/1.73 SQ METERS THIS TEST SHOULD ONLY BE USED FOR PATIENTS 18 YEARS OF AGE AND OLDER. Globulin (S) [Mass/Vol] 3.5 g/dL Normal 1.5 - 3.8 [facility] Comment on above: Performed By: #### 2 43963 #### [facility],[address] [place] [address] 54174 Glucose [Mass/Vol] 102 mg/dL Normal 74 - 106 [facility] Comment on above: Performed By: #### 2 90835 #### [address] [address] Potassium [Moles/Vol] 4.3 mmol/L Normal 3.5 - 5.1 [facility] Comment on above: Performed By: #### 2 33096 #### [address] [address] Protein [Mass/Vol] 8.2 g/dL Normal 6.4 - 8.2 [facility] Comment on above: Performed By: #### 2 85421 #### [address] [address] Sodium [Moles/Vol] 141 mmol/L Normal 136 - 145 [facility] Comment on above: Performed By: #### 2 81937 #### [address] [address] Urea nitrogen [Mass/Vol] 9 mg/dL Normal 7 - 18 [facility] Comment on above: Performed By: #### 2 14770 #### [address] [address] LIPID PROFILEon 04-04-2024 Cholesterol [Mass/Vol] 132 mg/dL Normal 0 - 240 [facility] Comment on above: Performed By: #### 2 33555 #### [address] [address] Cholesterol in HDL [Mass/Vol] 30 mg/dL Low 40 - 60 [facility] Comment on above: Performed By: #### 2 90865 #### [facility],[address] [place] [address]1922 Cholesterol.total/Cholest jovan in HDL [Mass ratio] 4.4 {ratio} Normal 0.0 - 5.0 [facility] Comment on above: Performed By: #### 2 96671 #### [facility],[address] [place] [address] 07366 LDL N/A Normal 0 - 129 [facility] Comment on above: Performed By: #### 2 82314 #### [facility],[address] [place] [address] 61542 Lipid 1996 panel Normal [facility] Comment on above: Result Comment: LIPI D PROFILE Performed By: #### 2 58264 #### [facility],[address] [place] [address] 50581 Triglyceride [Mass/Vol] 507 mg/dL High 0 - 150 [facility] Comment on above: Performed By: #### 2 96466 #### [facility],[address] [place] [address] 48932 CBC + DIFFon 04-06-2023 Baso # 0.00 x10EE3/UL Normal 0.00 - 0.10 [facility] Comment on above: Performed By: #### 2 50784 #### [facility],[address] [place] [address] 51932 Basophils/100 WBC (Bld) 0.6 % Normal 0.0 - 2.0 [facility] Comment on above: Performed By: #### 2 36632 #### [facility],[address] [place] [address] 60664 CBC + DIFF Normal [facility] Comment on above: Result Comment: CBC- COMPLETE BLOOD COUNT Performed By: #### 2 56907 #### [facility],[address] [place] [address] 02287 EO # 0.10 x10EE3/UL Normal 0.00 - 0.50 [facility] Comment on above: Performed By: #### 2 05222 #### [facility],[address] [place] [address] 13906 Eosinophils/100 WBC (Bld) 2.4 % Normal 0.0 - 7.0 [facility] Comment on above: Performed By: #### 2 91809 #### [facility],[address] [place], [place] [address] Erythrocyte distribution width (RBC) [Ratio] 13.7 % Normal 12.0 - 15.6 [facility] Comment on above: Performed By: #### 2 64566 #### [facility],[address] [place] [address] Hematocrit (Bld) [Volume fraction] 48.7 % Normal 40.0 - 52.0 [facility] Comment on above: Performed By: #### 2 28431 #### [facility],[address] [place], [place] [address] Hemoglobin (Bld) [Mass/Vol] 16.6 g/dL Normal 13.0 - 17.5 [facility] Comment on above: Performed By: #### 2 25963 #### [facility],[address] [place] [address] 86500 Lymph # 1.40 x10EE3/UL Normal 0.80 - 2.80 [facility] Comment on above: Performed By: #### 2 55102 #### [facility],[address] [place] [address] 98574 Lymphocytes/100 WBC (Bld) 22.6 % Normal 20.0 - 45. 0 [facility] Comment on above: Performed By: #### 2 84795 #### [facility],[address] [place] [address] 63233 MANUAL DIFF N/A Normal [facility] Comment on above: Performed By: #### 2 11747 #### [facility],[address] [place] [address] 24728 MCH (RBC) [Entitic mass] 31 pg Normal 27 - 33 [facility] Comment on above: Performed By: #### 2 75976 #### [facility],[address] [place] [address] 71256 MCHC 34 X10 3 Normal 32 - 36 [facility] Comment on above: Performed By: #### 2 [id number] #### [facility],[address] [place] [address] 50444 MCV (RBC) [Entitic vol] 91 fL Normal 81 - 98 [facility] Comment on above: Performed By: #### 2 78905 #### [facility],[address] [place] [address] 59770 Milam # 0.40 x10EE3/UL Normal 0.20 - 1.00 [facility] Comment on above: Performed By: #### 2 [id number] #### [facility],[address] [place] [address] 49793 MONOS % 7.1 % Normal 0.0 - 10.0 [facility] Comment on above: Performed By: #### 2 [id number] #### [facility],[address] [place] [address] 57178 Morphology Devan (Bld) [Interp] N/A Normal [facility] Comment on above: Result Comment: {CD] Performed By: #### 2 [id number] #### [facility],[address] [place] [address] 08947 Neut # 4.10 x10EE3/UL Normal 1.50 - 7.10 [facility] Comment on above: Performed By: #### 2 39336 #### [facility],[address] [place] [address] 23497 Neutrophils/100 WBC (Bld) 67.3 % Normal 46.0 - 76. 0 [facility] Comment on above: Performed By: #### 2 33597 #### [facility],[address] [place] [address] 04323 PLATELET 247 x10EE3/UL Normal 150 - 450 [facility] Comment on above: Performed By: #### 2 73346 #### [facility],[address] [place] [address] 78347 Platelet mean volume (Bld) [Entitic vol] 8.3 fL Normal 6.4 - 10.5 [facility] Comment on above: Result Comment: AUTO MATED DIFFERENTIAL Performed By: #### 2 06852 #### [facility],[address] [place] [address] RBC 5.39 x 10EE6/UL Normal 4.50 - 6.00 [facility] Comment on above: Performed By: #### 2 98728 #### [facility],[address] [place] [address] 17909 WBC 6.1 x 10EE3/UL Normal 4.5 - 10.8 [facility] Comment on above: Performed By: #### 2 69844 #### [facility],[address] [place] [address] CMP with eGFRon 04-06-2023 AGE 48 years Normal [facility] Comment on above: Performed By: #### 2 56374 #### [facility],[address] [place] [address] 60779 Albumin [Mass/Vol] 4.6 g/dL Normal 3.4 - 5.0 [facility] Comment on above: Performed By: #### 2 88528 #### [facility],[address] [place] [address] 03710 Albumin/Globulin [Mass ratio] 1.3 {ratio} Normal 0.9 - 1.6 [facility] Comment on above: Performed By: #### 2 61808 #### [facility],[address] [place], [place] [id number] ALK PHOS 80 U/L Normal 46 - 116 [facility] Comment on above: Performed By: #### 2 74006 #### [facility],[address] [place] [address] 55983 ALT [Catalytic activity/Vol] 61 U/L Normal 16 - 63 [facility] Comment on above: Performed By: #### 2 92510 #### [facility],[address] [place] [address] Anion gap [Moles/Vol] 16 mmol/L Normal 10 - 20 [facility] Comment on above: Performed By: #### 2 97265 #### [facility],[address] [place] [address] AST [Catalytic activity/Vol] 33 U/L Normal 15 - 37 [facility] Comment on above: Performed By: #### 2 52363 #### [facility],[address] [place] [address] B/C RATIO 15 ratio Normal 0 - 30 [facility] Comment on above: Performed By: #### 2 06231 #### [facility],[address] [place] [address] 22372 Bilirubin [Mass/Vol] 0.7 mg/dL Normal 0.2 - 1.0 [facility] Comment on above: Performed By: #### 2 97144 #### [facility],[address] [place] [address] 92441 Calcium [Mass/Vol] 9.2 mg/dL Normal 8.5 - 10.1 [facility] Comment on above: Performed By: #### 2 72885 #### [facility],[address] [place] [address] 41546 Chloride [Moles/Vol] 99 mmol/L Normal 98 - 107 [facility] Comment on above: Performed By: #### 2 81465 #### [facility],[address] [place] [address] 67441 CMP with eGFR Normal [facility] Comment on above: Result Comment: COMP REHENSIVE METABOLIC PANEL Performed By: #### 2 54221 #### [facility],[address] [place] [address] 77619 CO2 [Moles/Vol] 26.7 mmol/L Normal 21.0 - 32.0 [facility] Comment on above: Performed By: #### 2 30237 #### [facility],[address] [place] [address] Creatinine [Mass/Vol] 1.03 mg/dL Normal 0.70 - 1.30 [facility] Comment on above: Performed By: #### 2 15992 #### [facility],[address] [place] [address] GFR/1.73 sq M.predicted among non-blacks MDRD (S/P/Bld) [Vol rate/Area] mL/min/{1.73_m2} Normal 60 - 999 [facility] Comment on above: Performed By: #### 2 23947 #### [facility],[address] [place] [address] Result Comment: ACCO RDING TO THE NATIONAL KIDNEY DISEASE EDUCATION PROGRAM(NKDE), A NORMAL eGFR IS A VALUE GREATER THAN OR EQUAL TO 60 ML/MIN/1.73 SQ METERS. CHRONIC KIDNEY DISEASE: <60mL/MIN/1.73 SQ METERS KIDNEY FAILURE: <15mL/MIN/1.73 SQ METERS THIS TEST SHOULD ONLY BE USED FOR PATIENTS 18 YEARS OF AGE AND OLDER. Globulin (S) [Mass/Vol] 3.6 g/dL Normal 1.5 - 3.8 [facility] Comment on above: Performed By: #### 2 66402 #### [facility],[address] [place] [address] 34098 Glucose [Mass/Vol] 91 mg/dL Normal 74 - 106 [facility] Comment on above: Performed By: #### 2 90548 #### [facility],[address] [place] [address] 05561 Potassium [Moles/Vol] 4.0 mmol/L Normal 3.5 - 5.1 [facility] Comment on above: Performed By: #### 2 05632 #### [facility],[address] [place] [address] 57260 Protein [Mass/Vol] 8.2 g/dL Normal 6.4 - 8.2 [facility] Comment on above: Performed By: #### 2 22971 #### [facility],[address] [place] [address] 28125 Sodium [Moles/Vol] 138 mmol/L Normal 136 - 145 [facility] Comment on above: Performed By: #### 2 66257 #### [facility],[address] [place] [address] 73836 Urea nitrogen [Mass/Vol] 15 mg/dL Normal 7 - 18 [facility] Comment on above: Performed By: #### 2 98828 #### [facility],[address] [place] [address] 96914 LIPID PROFILEon 04-06-2023 Cholesterol [Mass/Vol] 139 mg/dL Normal 0 - 240 [facility] Comment on above: Performed By: #### 2 95373 #### [facility],[address] [place] [address] 53023 Cholesterol in HDL [Mass/Vol] 26 mg/dL Low 40 - 60 [facility] Comment on above: Performed By: #### 2 51205 #### [facility],[address] [place] [address] 46937 Cholesterol.total/Cholest jovan in HDL [Mass ratio] 5.3 {ratio} High 0.0 - 5.0 [facility] Comment on above: Performed By: #### 2 17180 #### [facility],[address] [place] [address] 77190 LDL N/A Normal 0 - 129 [facility] Comment on above: Performed By: #### 2 63743 #### [facility],[address] [place] [address] 00798 Lipid 1996 panel Normal [facility] Comment on above: Result Comment: LIPI D PROFILE Performed By: #### 2 [id number] #### [facility],[address] [place] [address] 53430 Triglyceride [Mass/Vol] 569 mg/dL High 0 - 150 [facility] Comment on above: Performed By: #### 2 52141 #### [facility],[address] [place] [address] 88138 Vital Signs Date Time Vital Sign Value Performing Clinician Em cartagena 01-09-2025 08:08-0400 Body height 193.[address] Kari Marie MD Work Phone: [facility] 01-09-2025 08:08-0400 Body mass index (BMI) [Ratio] 28.7 kg/m2 Dr. Kari Marie MD Work Phone: [facility] 01-09-2025 08:08-0400 Body temperature 97.8 [degF] Dr. Kari Marie MD Work Phone: [facility] 01-09-2025 08:08-0400 Body weight 107.[address] Kari Marie MD Work Phone: [facility] 01-09-2025 08:08-0400 Diastolic blood pressure 98 mm[Hg] Dr. Kari Marie MD Work Phone: [facility] 01-09-2025 08:08-0400 Heart rate 117 /min Dr. Kari Marie MD Work Phone: [facility] 01-09-2025 08:08-0400 Respiratory rate 16 /min Dr. Kari Marie MD Work Phone: [facility] 01-09-2025 08:08-0400 SaO2% (BldA) [Mass fraction] 97 % Dr. Kari Marie MD Work Phone: [facility] 01-09-2025 08:08-0400 Systolic blood pressure 138 mm[Hg] Dr. Kari Marie MD Work Phone: [facility] 09-26-2024 13:29-0400 Body mass index (BMI) [Ratio] 28.2 kg/m2 Dr. Kari Marie MD Work Phone: [facility] 09-26-2024 13:29-0400 Body temperature 97.1 [degF] Dr. Kari Marie MD Work Phone: [facility] 09-26-2024 13:29-0400 Body weight 105.[address] Kari Marie MD Work Phone: [facility] 09-26-2024 13:29-0400 Diastolic blood pressure 82 mm[Hg] Dr. Kari Marie MD Work Phone: [facility] 09-26-2024 13:29-0400 Heart rate 109 /min Dr. Kari Marie MD Work Phone: [facility] 09-26-2024 13:29-0400 Respiratory rate 16 /min Dr. Kari Marie MD Work Phone: [facility] 09-26-2024 13:29-0400 SaO2% (BldA) [Mass fraction] 95 % Dr. Kari Marie MD Work Phone: [facility] 09-26-2024 13:29-0400 Systolic blood pressure 146 mm[Hg] Dr. Kari Marie MD Work Phone: [facility] Encounters Encounter Date Encounter Type Care Provider Facility Start: 01-09-2025 End: 01-09-[address] Kari Marie MD -[facility] Work Phone: Start: 01-09-2025 End: 01-09-[address] Kari Marie MD Work Phone: -[facility] Start: 12-05-2024 ambulatory Gemarandolphkristen Marie Facili ty:[facility] Start: 11-14-2024 ambulatory Gemarandolphkristen Marie Facili ty:[facility] Start: 09-26-2024 End: 09-26-[address] Kari Marie MD -[facility] Work Phone: Start: 09-26-2024 End: 09-26-20[facility] Start: 09-26-2024 End: 09-26-2024 ambulatory [facility] Facility:[facility] Start: 04-04-2024 End: 04-04-2024 ambulatory [facility] Start: 04-06-2023 End: 04-06-2023 ambulatory [facility] Procedures Date Procedure Procedure Detail Performing Clinician Start: 09-26-2024 Vitamin D, 25-hydrox y measurement Dr. Kari Marie MD Work Phone: Comment on above: Vitamin D StatusDefi ciency: <20 ng/mL (50nmol/L)Insufficiency: 20-30 ng/mL (50-75 nmol/L)Sufficiency: 30-100 ng/mL (75-250 nmol/L)Toxicity: >100 ng/mL (>250 nmol/L) Plan of Treatment Date Care Activity Detail Author Comprehensive metabo lic 1999 panel - Serum or Plasma [facility] CT Abdomen and Pelvis W contrast IV [facility] Lipid 1996 panel - Serum or Plasma [facility] Payers Date Payer Category Payer Self-pay 2024 Unknown [id number] 1975 Unknown [id number] 2.16.8 [id number] 1975 Unknown [id number] 2.16.8 [id number] 1975 Unknown [id number] 2.16.8 [id number] Unknown [id number] 2.16.8 [id number] Unknown [id number] 2.16.8 [id number] Unknown [id number] 2.16.8 [id number] Unknown [id number] 2.16.8 [id number] Unknown [id number] 2.16.8 [id number] Social History Date Type Detail Facility Start: 09-26-2024 Tobacco smoking stat [facility] Never smoked tobacco (finding) [facility] Start: 1975 Sex Assigned At Male [facility] Gender Identity Identifies as ma le gender (finding) [facility] Sexual Orientation Heterosexual (finding) [facility] Evaluation note 09-26-2024 Note Date & Type Note Facility 09-26-2024 Evaluation note Diagnosis Onset Date Resolution Anxiety and depression chronic Ap 2024 1:26pm Hypertension chronic September 26, 2024 1:26pm Left groin mass chronic August 1:26pm Scrotal swelling chronic September 262024 1:26pm [facility] Work Phone: Reason for referral (narrative) Note Date & Type Note Facility Reason for referral (narrative) No reason for referral information available [facility] Work Phone: Summary Purpose Family History No Family History Records FoundNo Family History Records Found Advance Directives No Advanced Directives Records FoundNo Advanced Directives Records Found Chief Complaint and Reason for Visit Chief Complaint Admit Date Booked from other vendor September 26 1:26pm FOLLOW UP January 09, 2025 8: 01am Reason for Visit Admit Date Anxiety and depression September 26, 2024 1:26pm Hypertension September 26, 2024 1:2 6pm Left groin mass September 26, 2024 1:2 6pm Scrotal swelling September 26, 2024 1:2 6pm Additional Source Comments (unrecognized sect ion and content) No Status Records FoundNo Status Records Found INFORMATION SOURCE (unrecogn ized section and content) DATE CREATED AUTHOR 04/05/2024 [facility] DATE CREATED AUTHOR AUTHOR'S EUGENE MANRIQUEZ 01/10/2025 [facility] Care Teams (unrecognized sec tion and content) Team Status: Active Member Role/Relationship Status Dates Dr. Kari Marie MD Primary Care Provider Active Team Status: Inactive Member Role/Relationship Status Dates Dr. Kari Marie MD Attending Provider Active Start: September 26, 2024 End: September 26, 2024 Team Status: Inactive Member Role/Relationship Status Dates Dr. Kari Marie MD Primary Care Provider Active Start: September 26, 2024 End: September 26, 2024 Dr. Kari Marie MD Attending Provider Active Start: September 26, 2024 End: September 26, 2024 Dr. Kari Marie MD Referring Provider Active Start: September 26, 2024 End: September 26, 2024 Team Status: Inactive Member Role/Relationship Status Dates Dr. Kari Marie MD Primary Care Provider Active Start: January 09, 2025 End: January 09, 2025 Dr. Kari Marie MD Attending Provider Active Start: January 09, 2025 End: January 09, 2025 Dr. Kari Marie MD Referring Provider Active Start: January 09, 2025 End: January 09, 2025 Goals (unrecognized section and content) Goals may be documented in a n alternate section FOR RECORDS PERTAINING TO PATIENTS WHO ARE OR HAVE BEEN ENROLLED IN A CHEMICAL DEPENDENCY/SUBSTANCEABUSE PROGRAM, SOME INFORMATION MAY BE OMITTED. This clinical summary was aggregated from multiple sources. Caution should be exercised in using it in the provision of clinical care. This summary normalizes information from multiple sources, and as a consequence, information in this document may materially change the coding, format and clinical context of patient data. In addition, data may be omitted in some cases. CLINICAL DECISIONS SHOULD BE BASED ON THE PRIMARY CLINICAL RECORDS. [facility] provides no warranty or guarantee of the accuracy or completeness of information in this document.
[2025-03-01 07:32] LABS: AST(SGOT) 43 U/L (<=37); Alanine Aminotransfer ALT/SGPT 50 U/L (<=46); Albumin, Serum 4.8 g/dL (3.5-5.0); Alkaline Phosphatase 73 U/L (40-129); Anion Gap 15 (5-15); BUN 16 mg/dL (4-19); BUN/Creat Ratio 14.8 RATIO (10-20); Calcium,Total 9.2 mg/dL (7.6-11.0); Carbon Dioxide 20.6 mmol/L (21.0-32.0); Chloride 103 mmol/L (98-108); Cholesterol 143 mg/dL (<=200); Globulin 2.8 g/dL (2.2-4.2); Glucose 116 mg/dL (70-99); Low Density Lipoprotein Calc. -23 mg/dL; Potassium 4.2 mmol/L (3.3-5.1); Triglycerides 719 mg/dL; Very Low Density Lipoprotein 144 mg/dL (5-40); cholesterol:hdl ratio screen 6.44
== END | disposition home or self-care (01) ==
PROVIDERS: PCP Internal Medicine; Referring Provider Internal Medicine; Visit Provider Internal Medicine
DX: I10 Essential (primary) hypertension (principal)
CPT/HCPCS: 36415; 80053; 80061